=== PATIENT | female | born 1995 | race Asian ===

== ENCOUNTER → 2017-09-22 | Outpatient (CLI) | payer OTHER ==
[~2017-09-22] MED LIST: AMOXICILLIN 8751 TAB PO; CAMBIA50 MG PO; CEPHALEXIN500 M1 PO; DEPO-PROVER150 MG/M1 IM; NEURONTIN600 MG/TAB PO; NO HOME MEDICATIONS
== END ==
LOC: COL.RAD 13:16
DX: R10.2 Pelvic and perineal pain (principal)